=== PATIENT | male | born 1985 | race Caucasian/White ===

== ENCOUNTER 2018-08-07 17:57 | Emergency (ER) | payer OTHER ==
[~2018-08-07] VITALS: Ht 162.6 cm; Wt 77.3 kg
[~2018-08-07 17:57] MED LIST: ATIVAN 1MG T1 MG/TAB PO; MINIPRESS 1M1 MG/CAP PO; PAXIL 20MG20 MG PO; ZOCOR 10MG10 MG PO
[2018-08-07 18:01] VITALS: BP 146/90; TEMP 97.5
[2018-08-07 19:30] VITALS: PULSE 63
== END 2018-08-07 19:30 | disposition home or self-care (01) ==
LOC: COL.ER 17:57
DX: S05.02XA Injury of conjunctiva and corneal abrasion without foreign body, left eye, initial encounter (principal); H10.212 Acute toxic conjunctivitis, left eye; E78.00 Pure hypercholesterolemia, unspecified; F32.9 Major depressive disorder, single episode, unspecified; F41.9 Anxiety disorder, unspecified; Z87.891 Personal history of nicotine dependence; Z77.098 Contact with and (suspected) exposure to other hazardous, chiefly nonmedicinal, chemicals